=== PATIENT | male | born 1975 | race Caucasian/White ===

== ENCOUNTER 2021-01-18 18:25 | Emergency (ER) | payer MEDICAID ==
[~2021-01-18 18:25] MED LIST: ZOFRAN4 MG PO
[2021-01-18 18:49] VITALS: BP 151/87
[2021-01-18] MEDS ORDERED: VIBRAMYCIN100 MG PO (21:13)
== END 2021-01-18 21:20 | disposition home or self-care (01) ==
LOC: ED 18:25
DX: R21 Rash and other nonspecific skin eruption (principal); Z88.0 Allergy status to penicillin; Z79.899 Other long term (current) drug therapy

== ENCOUNTER 2022-06-14 13:57 | Emergency (ER) | payer SELFPAY ==
[~2022-06-14] VITALS: Ht 193 cm; Wt 79.4 kg
[~2022-06-14 13:57] MED LIST changes: +VIBRAMYCIN100 MG PO
[2022-06-14 14:07] VITALS: BP 141/71
[2022-06-14 15:18] LABS: BILIRUBIN Negative (Negative); BLOOD Negative (Negative); CLARITY Clear (Clear); COLOR Yellow (Yellow); GLUCOSE Negative (Negative); KETONE Negative (Negative); LEUKO ESTERASE Negative (Negative); NITRITE Negative (Negative); PH 6.5 (4.5-8.0); SPECIFIC GRAVITY <= 1.005 (1.001-1.030)
[2022-06-14 15:27] LABS: BASO % 0.5 % (0.0-1.0); EOS # 0.1 10*3/uL (0.0-0.4); EOS % 1.4 % (1.0-4.0); HEMATOCRIT 44.9 % (42.0-52.0); LYMPH # 1.9 10*3/uL (1.3-4.4); LYMPH % 21.7 % (27.0-41.0); MEAN CELL VOLUME 87.5 fl (80.0-94.0); MEAN CORPUSCULAR HGB 29.8 pg (27.0-31.0); MEAN CORPUSCULAR HGB CONC 34.1 g/dl (33.0-37.0); MEAN PLATELET VOLUME 9.7 fl (9.6-12.3); MONO # 0.5 10*3/uL (0.1-1.0); MONO % 6.2 % (3.0-9.0); NEUT # 6.1 10*3/uL (2.3-7.9); PLATELET COUNT AUTOMATED 278 10*3/uL (130-400); RED BLOOD COUNT 5.13 10*6/uL (4.50-5.90); RED CELL DISTRI WIDTH 13.3 % (0-14.5); WHITE BLOOD COUNT 8.8 10*3/uL (4.8-10.8)
[2022-06-14 15:30] LABS: EPITHELIAL CELLS 0-2; WBC 0-2 wbc/hpf (0-5)
[2022-06-14 15:43] LABS: ALKALINE PHOSPHATASE 96 U/L (45-117); BUN 10 mg/dl (7-24); CHLORIDE 105 mmol/L (98-107); CREATININE 0.82 mg/dL (0.70-1.30); POTASSIUM 3.9 mmol/L (3.5-5.1); SGOT/AST 14 IU/L (3-35); SGPT/ALT 26 U/L (12-78); SODIUM 139 mmol/L (136-145); TOTAL PROTEIN 8.4 gm/dL (6.4-8.2)
[2022-06-14] MEDS ORDERED: PAXLOVID 300-11 EAC2 PO (16:00)
== END 2022-06-14 16:09 | disposition home health service (06) ==
LOC: ED 13:57
PROVIDERS: Student in an Organized Health Care Education/Training Program
DX: J06.9 Acute upper respiratory infection, unspecified (principal); Z20.822 Contact with and (suspected) exposure to COVID-19; Z88.0 Allergy status to penicillin; Z79.2 Long term (current) use of antibiotics; Z79.899 Other long term (current) drug therapy

== ENCOUNTER 2022-10-26 13:08 | Emergency (ER) | payer OTHER ==
[~2022-10-26] VITALS: Wt 77.1 kg
[~2022-10-26 13:08] MED LIST changes: +PAXLOVID 300-11 EAC2 PO
[2022-10-26 13:28] VITALS: BP 123/72
[2022-10-26] MEDS ORDERED: ONDANSETRON4 MG SL (15:53)
== END 2022-10-26 16:03 | disposition home or self-care (01) ==
LOC: ED 13:08
DX: B34.9 Viral infection, unspecified (principal); Z88.0 Allergy status to penicillin

== ENCOUNTER 2023-07-12 12:30 | Emergency (ER) | payer OTHER ==
[~2023-07-12] VITALS: Ht 193 cm; Wt 72.6 kg
[~2023-07-12 12:30] MED LIST changes: +ONDANSETRON4 MG SL
[2023-07-12 12:43] VITALS: BP 137/93
[2023-07-12] MEDS ORDERED: TAMIFLU 75MG CA75 MG PO (15:39)
== END 2023-07-12 15:43 | disposition home or self-care (01) ==
LOC: ED 12:30
DX: J11.1 Influenza due to unidentified influenza virus with other respiratory manifestations (principal); Z88.0 Allergy status to penicillin; Z98.890 Other specified postprocedural states; Z20.822 Contact with and (suspected) exposure to COVID-19

== ENCOUNTER 2024-01-16 08:29 | Emergency (ER) | payer OTHER ==
[~2024-01-16] VITALS: Wt 74.8 kg
[~2024-01-16 08:29] MED LIST changes: +TAMIFLU 75MG CA75 MG PO
[2024-01-16 08:33] VITALS: BP 144/80
== END 2024-01-16 08:55 | disposition home or self-care (01) ==
LOC: ED 08:29
DX: S93.402A Sprain of unspecified ligament of left ankle, initial encounter (principal); Z88.0 Allergy status to penicillin; Z98.890 Other specified postprocedural states; X50.1XXA Overexertion from prolonged static or awkward postures, initial encounter; Y93.89 Activity, other specified; Y92.89 Other specified places as the place of occurrence of the external cause; Y99.0 Civilian activity done for income or pay